=== PATIENT | female | born 1965 | race American Indian/Alaskan Native ===

== ENCOUNTER 2021-01-30 04:40 | Emergency (ER) | payer OTHER ==
[2021-01-30 05:24] LABS: Bacteria,Urine 1+ /HPF (Negative); Bilirubin,Urine NEG (Negative); Blood,Urine NEG (Negative); Color,Urine Yellow (Yellow); Protein,Urine <15 mg/dL mg/dL (Negative); Urobilinogen,Urine < 2.0 mg/dL (<2.0)
[2021-01-30 05:40] LABS: Hematocrit 41.8 % (30.3-42.9); Hemoglobin 14.1 gm/dl (10.1-14.3); Mean Corpuscular HGB Conc 34 % (30-34); Mean Corpuscular Volume 89 fl (79-97); Platelet Count 235 K/mm3 (140-440); Red Blood Count 4.67 M/mm3 (3.65-5.03); Red Cell Distribution Width 13.8 % (13.2-15.2)
[2021-01-30 05:59] LABS: Blood Urea Nitrogen 13 mg/dL (7-17); Calcium 8.7 mg/dL (8.4-10.2); Hemolysis Index 5
[2021-01-30 06:07] LABS: BUN/Creatinine Ratio 19
[2021-01-30 07:00] LABS: Total Cells Counted 100
[2021-01-30 07:01] LABS: Platelet Estimate Consistent w Auto
[2021-01-30] MEDS ORDERED: SODIUM CHLORIDE 0.9% 1000 ML 1,000 ML IV ONE (07:27)
[2021-01-30] MEDS ORDERED: HYDROmorphone 1 MG/1 ML INJ IV ONE (07:27)
[2021-01-30] MEDS ORDERED: KETOROLAC 30 MG/1 ML INJ IV ONE (07:27)
[2021-01-30] MEDS ORDERED: ONDANSETRON 4 MG/2 ML INJ IV ONE (07:27)
--- NOTE | 2021-01-30 07:30 | Emergency Department Report ---
HPI - General Chief Complaint: Abdominal Pain Time Seen by Provider: 01/30/21 07:13 - HPI HPI: Room 21 The patient is a 56-year-old female present with a chief complaint of right flank pain. The patient states approximate midnight she developed pain in her right flank associated with nausea and vomiting. Patient states the pain feels similar to her previous kidney stone. Patient states that 02: 30 the pain worsened and woke her from her sleep. Patient denies history of fever, dysuria or hematuria. Patient currently gives her pain a score of 10/10 ED Past Medical Hx - Past Medical History Previous Medical History?: Yes Hx Hypertension: Yes Hx Diabetes: Yes Hx Kidney Stones: Yes Hx Psychiatric Treatment: Yes (Depression) - Surgical History Past Surgical History?: Yes Additional Surgical History: Bilateral Breast Reduction. Hysterectomy - Family History Family history: no significant - Social History Smoking Status: Current Every Day Smoker (1/7 pack/day) Substance Use Type: None (Denies illicit drug use), Alcohol (Wine frequently) - Medications Home Medications: Home Medications Medication Instructions Recorded Confirmed Last Taken Type Ibuprofen [Motrin 800 MG tab] 800 mg PO Q8HR PRN #20 tablet 01/30/21 Unknown Rx Ondansetron [Zofran ODT TAB] 8 mg PO Q8HR #20 tab.rapdis 01/30/21 Unknown Rx ED Review of Systems ROS: Stated complaint: RT SIDE PAIN;POSSIBLE KIDNEY STONE Other details as noted in HPI Constitutional: denies: fever Eyes: denies: eye pain ENT: denies: throat pain Respiratory: no symptoms reported Cardiovascular: denies: chest pain Endocrine: no symptoms reported Gastrointestinal: nausea, vomiting Genitourinary: denies: dysuria, hematuria Musculoskeletal: back pain Neurological: denies: headache Physical Exam - Physical Exam Vital Signs: Vital Signs 01/30/21 01/30/21 01/30/21 04:54 06:46 07:23 Temperature 98.1 F Pulse Rate 101 H 81 91 H Respiratory 17 18 Rate Blood Pressure 211/133 Blood Pressure 196/114 189/119 [Left] O2 Sat by Pulse 97 100 99 Oximetry Physical Exam: GENERAL: The patient is well-developed well-nourished female lying on stretcher appearing to be in mild discomfort. [] HEENT: Normocephalic. Atraumatic. Extraocular motions are intact. Patient has moist mucous membranes. NECK: Supple. Trachea midline CHEST/LUNGS: Clear to auscultation. There is no respiratory distress noted. HEART/CARDIOVASCULAR: Regular. There is no tachycardia. There is no gallop rub or murmur. ABDOMEN: Abdomen is soft, nontender. Patient has normal bowel sounds. There is no abdominal distention. SKIN: There is no rash. There is no edema. There is no diaphoresis. NEURO: The patient is awake, alert, and oriented. The patient is cooperative. The patient has no focal neurologic deficits. The patient has normal speech MUSCULOSKELETAL: There is right flank pain. There is no evidence of acute injury. ED Course Vital Signs 01/30/21 01/30/21 01/30/21 04:54 06:46 07:23 Temperature 98.1 F Pulse Rate 101 H 81 91 H Respiratory 17 18 Rate Blood Pressure 211/133 Blood Pressure 196/114 189/119 [Left] O2 Sat by Pulse 97 100 99 Oximetry - Reevaluation(s) Reevaluation #1: 01/30/21 08:24 Patient resting comfortably after analgesics. Noncontrast CT abdomen pelvis results discussed with patient. Will obtain CT with IV contrast ED Medical Decision Making - Lab Data Result diagrams: 01/30/21 05:11 01/30/21 05:11 Laboratory Tests 01/30/21 01/30/21 01/30/21 05:03 05:11 05:11 WBC 8.0 RBC 4.67 Hgb 14.1 Hct 41.8 MCV 89 MCH 30 MCHC 34 RDW 13.8 Plt Count 235 Baso % (Auto) Mold Machine Operator Add Manual Diff Complete Total Counted 100 Seg Neuts % (Manual) 52.0 Lymphocytes % (Manual) 44.0 H Monocytes % (Manual) 4.0 Nucleated RBC % Not Reportable Seg Neutrophils # Man 4.2 Band Neutrophils # 0.0 Lymphocytes # (Manual) 3.5 Abs React Lymphs (Man) 0.0 Monocytes # (Manual) 0.3 Eosinophils # (Manual) 0.0 Basophils # (Manual) 0.0 Metamyelocytes # 0.0 Myelocytes # 0.0 Promyelocytes # 0.0 Blast Cells # 0.0 WBC Morphology Not Reportable Hypersegmented Neuts Not Reportable Hyposegmented Neuts Not Reportable Hypogranular Neuts Not Reportable Smudge Cells Not Reportable Toxic Granulation Not Reportable Toxic Vacuolation Not Reportable Dohle Bodies Not Reportable Pelger-Huet Anomaly Not Reportable Zoltan Rods Not Reportable Platelet Estimate Consistent w auto Clumped Platelets Not Reportable Plt Clumps, EDTA Not Reportable Large Platelets Not Reportable Giant Platelets Not Reportable Platelet Satelliting Not Reportable Plt Morphology Comment Not Reportable RBC Morphology Not Reportable Dimorphic RBCs Not Reportable Polychromasia Not Reportable Hypochromasia Not Reportable Poikilocytosis Not Reportable Anisocytosis Not Reportable Microcytosis Not Reportable Macrocytosis Not Reportable Spherocytes Not Reportable Pappenheimer Bodies Not Reportable Sickle Cells Not Reportable Target Cells Not Reportable Tear Drop Cells Not Reportable Ovalocytes Not Reportable Helmet Cells Not Reportable Roman-Pony Bodies Not Reportable [place] Rings Not Reportable Rina Cells Not Reportable Bite Cells Not Reportable Crenated Cell Not Reportable Elliptocytes Not Reportable Acanthocytes (Spur) Not Reportable Rouleaux Not Reportable Hemoglobin C Crystals Not Reportable Schistocytes Not Reportable Malaria parasites Not Reportable Nate Bodies Not Reportable Hem Pathologist Commnt No Sodium 133 L Potassium 3.8 Chloride 98.7 Carbon Dioxide 27 Anion Gap 11 BUN 13 Creatinine 0.7 Estimated GFR > 60 BUN/Creatinine Ratio 19 Glucose 268 H Calcium 8.7 Urine Color Yellow Urine Turbidity Slightly-cloudy Urine pH 6.0 Ur Specific Mcdaniel 1.014 Urine Protein <15 mg/dl Urine Glucose (UA) >=500 Urine Ketones Neg Urine Blood Neg Urine Nitrite Neg Urine Bilirubin Neg Urine Urobilinogen < 2.0 Ur Leukocyte Esterase Neg Urine WBC (Auto) 2.0 Urine RBC (Auto) 2.0 U Epithel Cells (Auto) 16.0 H Urine Bacteria (Auto) 1+ - Radiology Data Radiology results: report reviewed (CT abdomen pelvis, CTA abdomen pelvis), image reviewed (CT abdomen pelvis, CTA abdomen pelvis) CT ABDOMEN AND PELVIS WITHOUT CONTRAST INDICATION / CLINICAL INFORMATION: MAIN. TECHNIQUE: Axial CT images were obtained through the abdomen and pelvis without IV contrast. All CT scans at this location are performed using CT dose reduction for ALARA by means of automated exposure control. COMPARISON: None available. FINDINGS: LOWER CHEST: Mild cardiomegaly. HEPATOBILIARY: No significant abnormality. PANCREAS/SPLEEN/ADRENALS: No significant abnormality. GENITOURINARY: No nephrolithiasis or obstructive uropathy. Ureters and bladder demonstrate no significant abnormality. GASTROINTESTINAL/MESENTERY: No bowel obstruction or inflammation. Appendix demonstrates no significant abnormality. No free air or significant free fluid. Mild mesenteric haziness with a few normal-sized lymph nodes in the upper midabdomen. RETROPERITONEUM: No significant adenopathy. REPRODUCTIVE ORGANS: No significant abnormality. VASCULAR: Mild atherosclerotic calcification without acute abnormality. BODY WALL: No significant abnormality. SKELETAL SYSTEM: Grade 1 anterolisthesis of L4 on L5. No acute fracture or aggressive osseous lesion. IMPRESSION: 1. No acute abdominal or pelvic abnormality. 2. Mild cardiomegaly. 3. Grade 1 anterolisthesis of L4 on L5. Signer Name: Cali Torre MD Signed: 01/30/2021 7:06 AM Workstation Name: [id number] CTA ABDOMEN/PELVIS INDICATION / CLINICAL INFORMATION: MAIN. TECHNIQUE: Axial CT images were obtained through the abdomen and pelvis after 100 cc Omnipaque 350 IV contrast. Angiogram protocol was used. All CT scans at this location are performed using CT dose reduction for ALARA by means of automated exposure control. COMPARISON: 01/30/2021 CT abdomen pelvis FINDINGS: LOWER CHEST: Mild cardiomegaly. HEPATOBILIARY: No significant abnormality. PA NCREAS/SPLEEN/ADRENALS: No significant abnormality. GENITOURINARY: Subcentimeter hypodensity at the superior left renal pole is too small to definitely characterize, however likely represents a cyst. GASTROINTESTINAL/MESENTERY: No significant abnormality. RETROPERITONEUM: No significant adenopathy. REPRODUCTIVE ORGANS: No significant abnormality. VASCULAR: No significant atherosclerotic calcification is visualized in the abdominal aorta or its branch vessels extending into the iliac arteries. Celiac artery, superior mesenteric artery, and ZAIN demonstrate no significant abnormality. Renal arteries demonstrate no significant abnormality. BODY WALL: No significant abnormality. SKELETAL SYSTEM: Grade 1 anterolisthesis of L4 on L5. Mild sacroiliac sclerosis. IMPRESSION: 1. Unremarkable appearance of the abdominopelvic vasculature, as above. 2. Additional findings as above. Signer Name: Cali Torre MD Signed: 01/30/2021 8:18 AM Workstation Name: [id number] - Differential Diagnosis Renal colic, pyelonephritis, muscle strain Critical care attestation.: If time is entered above; I have spent that time in minutes in the direct care of this critically ill patient, excluding procedure time. ED Disposition Clinical Impression: Acute right flank pain Disposition: DC- TO HOME OR SELFCARE Is pt being admited?: No Does the pt Need Aspirin: No Condition: Stable Instructions: Abdominal Pain (ED), Flank Pain, Adult, [id number] Additional Instructions: Return to the emergency department should you develop worsening symptoms, inability to tolerate food or liquids, high fever or any other concerns Prescriptions: Ibuprofen [Motrin 800 MG tab] 800 mg PO Q8HR PRN #20 tablet PRN Reason: Pain, Moderate (4-6) Ondansetron [Zofran ODT TAB] 8 mg PO Q8HR #20 tab.rapdis Referrals: DR RACHEL [Other] - 3-5 Days Time of Disposition: 09:42
--- NOTE | 2021-01-30 08:10 | Cat Scan Report ---
CT ABDOMEN AND PELVIS WITHOUT CONTRAST INDICATION / CLINICAL INFORMATION: MAIN. TECHNIQUE: Axial CT images were obtained through the abdomen and pelvis without IV contrast. All CT scans at [facility] location are performed using CT dose reduction for ALARA by means of automated exposure control. COMPARISON: None available. FINDINGS: LOWER CHEST: Mild cardiomegaly. HEPATOBILIARY: No significant abnormality. PANCREAS/SPLEEN/ADRENALS: No significant abnormality. GENITOURINARY: No nephrolithiasis or obstructive uropathy. Ureters and bladder demonstrate no signifi cant abnormality. GASTROINTESTINAL/MESENTERY: No bowel obstruction or inflammation. Appendix demonstrates no significan t abnormality. No free air or significant free fluid. Mild mesenteric haziness with a few normal-size d lymph nodes in the upper midabdomen. RETROPERITONEUM: No significant adenopathy. REPRODUCTIVE ORGANS: No significant abnormality. VASCULAR: Mild atherosclerotic calcification without acute abnormality. BODY WALL: No significant abnormality. SKELETAL SYSTEM: Grade 1 anterolisthesis of L4 on L5. No acute fracture or aggressive osseous lesion. IMPRESSION: 1. No acute abdominal or pelvic abnormality. 2. Mild cardiomegaly. 3. Grade 1 anterolisthesis of L4 on L5. Signer Name: Cali Torre MD Signed: 01/30/2021 8:06 AM Workstation Name: [id number]
--- NOTE | 2021-01-30 09:23 | Cat Scan Report ---
CTA ABDOMEN/PELVIS INDICATION / CLINICAL INFORMATION: MAIN. TECHNIQUE: Axial CT images were obtained through the abdomen and pelvis after 100 cc Omnipaque 350 IV contrast. Angiogram protocol was used. All CT scans at this location are performed using CT dose reduction for ALARA by means of automated exposure control. COMPARISON: 01/30/2021 CT abdomen pelvis FINDINGS: LOWER CHEST: Mild cardiomegaly. HEPATOBILIARY: No significant abnormality. PANCREAS/SPLEEN/ADRENALS: No significant abnormality. GENITOURINARY: Subcentimeter hypodensity at the superior left renal pole is too small to definitely c haracterize, however likely represents a cyst. GASTROINTESTINAL/MESENTERY: No significant abnormality. RETROPERITONEUM: No significant adenopathy. REPRODUCTIVE ORGANS: No significant abnormality. VASCULAR: No significant atherosclerotic calcification is visualized in the abdominal aorta or its br anch vessels extending into the iliac arteries. Celiac artery, superior mesenteric artery, and ZAIN de monstrate no significant abnormality. Renal arteries demonstrate no significant abnormality. BODY WALL: No significant abnormality. SKELETAL SYSTEM: Grade 1 anterolisthesis of L4 on L5. Mild sacroiliac sclerosis. IMPRESSION: 1. Unremarkable appearance of the abdominopelvic vasculature, as above. 2. Additional findings as above. Signer Name: Cali Torre MD Signed: 01/30/2021 9:18 AM Workstation Name: [id number]
[2021-01-30 11:15] VITALS: BP 159/91
== END 2021-01-30 11:15 | disposition home or self-care (01) ==
LOC: ED 04:40
DX: R10.9 Unspecified abdominal pain (principal); I10 Essential (primary) hypertension; E11.9 Type 2 diabetes mellitus without complications; N20.0 Calculus of kidney; F32.9 Major depressive disorder, single episode, unspecified; F17.200 Nicotine dependence, unspecified, uncomplicated; Z98.890 Other specified postprocedural states; Z79.899 Other long term (current) drug therapy
CPT/HCPCS: 36415; 74175; 74176; 80048; 81001; 85007; 85025; 96361; 96374; 96375; 99284; J1170; J1885; J2405; J7030; Q9967